=== PATIENT | female | born 1940 | race Caucasian/White ===

== ENCOUNTER 2017-02-09 11:10 | Observation (INO) | payer MEDICARE, OTHER ==
[2017-02-09] MEDS ORDERED: TYLENOL 325 MG PO PRN (11:51)
[2017-02-09] MEDS ORDERED: DUONEB 0.5-3 MG/3 ml Neb IH ONE (12:05)
[2017-02-09] MEDS: DUONEB 0.5-3 MG/3 ml Neb IH SCH ×4 (12:10→23:03)
[2017-02-09 12:27] LABS: Hemoglobin 11.6 gm/dl (12.0-16.0); Mean Cell Volume 93.3 fl (78-100); Mean Corpuscular Hemoglobin 30.9 pg (26-32); Mean Corpuscular Hgb Concent. 33.1 g/dl (32-36); Mean Platelet Volume 10.5 fl (6-9.5); Platelet Count 282 K/mm3 (150-450); Red Blood Count 3.75 M/mm3 (4.1-5.4); Red Cell Distribution Width 13.1 % (11.5-14.0); White Blood Count 9.6 K/mm3 (4.0-10.5)
[2017-02-09 12:46] LABS: ALBUMIN 3.1 g/dL (3.4-5.0); BILIRUBIN,TOTAL 0.4 mg/dL (0.2-1.0); Carbon Dioxide 28.3 mEq/L (21-32); Creatinine 1 1.86 mg/dl (0.55-1.30); Potassium 4.4 mEq/L (3.5-5.1); Total Protein 7.1 gm/dL (6.4-8.2)
[2017-02-09 12:56] LABS: BAND 2 % (0.0-2.0); Lymphocytes 9 % (24-44); Monocyte 2 % (0.0-12.0); Neutrophils 87 % (36.0-66.0); Platelet Estimate NORMAL (NORMAL); Total Cells Counted 100
[2017-02-09 12:57] LABS: Granulocyte Absolute (ANC) 8.6 (1.4-6.9)
--- NOTE | 2017-02-09 13:27 | XRAY ---
Indication: COPD exacerbation. Comparison: February 06, 2017. PA/lateral chest again hyperinflated. No focal infiltrate, consolidation, or large effusion. Heart and mediastinal structures within normal limits. Impression: Nonacute hyperinflated chest.
[2017-02-09] MEDS: Sodium Chloride 0.9% 1000 ML 1,000 ML IV SCH (13:36)
[2017-02-09] MEDS: Levofloxacin 500 MG Tablet PO SCH (13:37)
[2017-02-09] MEDS: solu-MEDROL 125 MG IV SCH ×2 (13:37→21:11)
[2017-02-09 13:38] LABS: INFLUENZA A NEGATIVE (NEGATIVE); INFLUENZA B NEGATIVE (NEGATIVE); RESPIRATORY SYNCTIAL VIRUS NEGATIVE (Negative)
[2017-02-09] MEDS ORDERED: MEDICATION INTERVENTION MC PRN (16:01)
[2017-02-09] MEDS ORDERED: Ventolin Hfa MDI IH SCH (17:00)
[2017-02-09] MEDS: Ditropan 5 MG PO SCH (21:11)
[2017-02-10] MEDS: Sodium Chloride 0.9% 1000 ML 1,000 ML IV SCH (02:17)
[2017-02-10] MEDS: DUONEB 0.5-3 MG/3 ml Neb IH SCH ×2 (03:55→07:28)
[2017-02-10] MEDS: solu-MEDROL 125 MG IV SCH ×2 (06:11→13:52)
[2017-02-10] MEDS: Levofloxacin 500 MG Tablet PO SCH (09:36)
[2017-02-10] MEDS: Ditropan 5 MG PO SCH (09:36)
[2017-02-10] MEDS ORDERED: NON-FORMULARY ITEM (Magnesium [Magnesium] 500 MG) PO SCH (10:00)
[2017-02-10] MEDS ORDERED: ECOTRIN 81 MG PO SCH (10:00)
[2017-02-10] MEDS ORDERED: Calcium 500MG W/Vit D Tablet PO SCH (10:00)
[2017-02-10] MEDS ORDERED: [UNRECOGNIZED DRUG - OTHER] PO SCH (10:00)
[2017-02-10] MEDS ORDERED: NON-FORMULARY ITEM (Omega-3 Fatty Acids/Fish Oil [Fish Oil 1,000 Mg Capsule] 1 EACH) PO SCH (10:00)
[2017-02-10] MEDS ORDERED: MAG-OX 400 PO SCH (10:00)
[2017-02-10] MEDS ORDERED: CALCIUM CARBONATE PO SCH (10:00)
[2017-02-10] MEDS ORDERED: SYNTHROID 125 MCG PO SCH (10:00)
[2017-02-10] MEDS ORDERED: THERAGRAN MULTIVITAMIN PO SCH (10:00)
[2017-02-10] MEDS ORDERED: FISH OIL 1,000 MG CAPSULE PO SCH (10:00)
[2017-02-10] MEDS ORDERED: Vitamin C 500 MG PO SCH (10:00)
[2017-02-10] MEDS ORDERED: ZYLOPRIM 300 MG PO SCH (10:00)
[2017-02-10] MEDS ORDERED: MULTIVIT WITH CALCIUM IRON MIN PO SCH (10:00)
[2017-02-10] MEDS ORDERED: VITAMIN D3 PO SCH (10:00)
[2017-02-10] MEDS ORDERED: Vitamin E 400 UNIT SOFTGEL PO SCH (10:00)
[2017-02-10] MEDS ORDERED: NON-FORMULARY ITEM (Niacin 500 Mg*** [Niaspan 500 Mg***] 500 MG) PO SCH (10:00)
[2017-02-10] MEDS ORDERED: [UNRECOGNIZED DRUG - OTHER] PO SCH (10:00)
[2017-02-10 12:31] LABS: Granulocyte Absolute (ANC) 11.79 (1.4-6.9); Hematocrit 31.6 % (35-47); Hemoglobin 10.5 gm/dl (12.0-16.0); Mean Cell Volume 94.3 fl (78-100); Mean Corpuscular Hemoglobin 31.3 pg (26-32); Mean Corpuscular Hgb Concent. 33.2 g/dl (32-36); Mean Platelet Volume 10.6 fl (6-9.5); Platelet Count 288 K/mm3 (150-450); Red Blood Count 3.35 M/mm3 (4.1-5.4); Red Cell Distribution Width 13.1 % (11.5-14.0); White Blood Count 13.3 K/mm3 (4.0-10.5)
[2017-02-10 13:06] LABS: ANION GAP 13.4 MEQ/L (5-15); Calcium 9.2 mg/dL (8.5-10.1); Carbon Dioxide 25.2 mEq/L (21-32); Creatinine 1 1.63 mg/dl (0.55-1.30); Potassium 3.9 mEq/L (3.5-5.1)
--- NOTE | 2017-02-10 13:39 | PCM.DCORD ---
- Discharge Discharge Date: 02/10/17 Disposition: Home, Self-Care Condition: Good Prescriptions: New Levofloxacin [Levofloxacin 500 MG Tablet] 500 mg PO DAILY tablet Continue Magnesium 500 mg PO DAILY Multivit with Calcium,Iron,Min [Multiple Vitamins For Women] 1 each PO DAILY Niacin 500 mg [Niaspan 500 mg] 500 mg PO DAILY Aspirin EC 81 mg [Ecotrin 81 mg] 81 mg PO DAILY Ascorbic Acid 500 mg [Vitamin C 500 MG] 500 mg PO DAILY Vitamin E 400 Units [Vitamin E 400 UNIT SOFTGEL] 400 unit PO DAILY [place]-3 Fatty Acids/Fish Oil [Fish Oil 1,000 mg Capsule] 1 each PO DAILY Oxybutynin Chloride 5 mg PO BID Levothyroxine Sodium 100 Mcg [Synthroid 100 Mcg] 125 mcg PO DAILY Allopurinol 300 mg [Zyloprim 300 mg] 300 mg PO DAILY Albuterol Sulfate [Proventil Hfa] 6.7 gm IH QID Calcium Carbonate/Vitamin D3 [Caltrate 600 + D Soft Chew Tab] 1 each PO DAILY Carboxymethylcellulose Sodium [Thera Tears] 1 ml OP Q2H Hypromellose/Pf [Retaine Hpmc 0.3% Eye Drops] 1 ml OP Q2H Vit C/E/Zn/Coppr/Lutein/Zeaxan [Preservision Areds 2 Softgel] 1 each PO BID Discontinued Potassium Chloride 20 Meq [Klor-Con 20 MEQ] 20 meq PO BID Furosemide 40 mg [Lasix 40 MG] 40 mg PO BID Ramipril 5 mg [Altace 5 MG] 5 mg PO BID Metoprolol Tartrate 50 mg PO BID Additional Instructions: Hold your ramipril, metoprolol, lasix and potassium until you are seen in the clinic early this coming week. I would like for you to be seen before . Finish your prednisone as ordered on 02/06/17. Follow up with: CALEB ROWLEY [ACTIVE STAFF] - 1 Week
[2017-02-10 14:41] VITALS: BP 123/58; PULSE 108; O2SAT 92
[2017-02-10 15:25] LABS: BAND 1 % (0.0-2.0); Lymphocytes 24 % (24-44); Monocyte 3 % (0.0-12.0); Neutrophils 72 % (36.0-66.0); Total Cells Counted 100
[2017-02-10 15:26] LABS: ANISOCYTOSIS 1+; Poikilocytosis 1+
[2017-02-10 15:27] LABS: Platelet Estimate NORMAL (NORMAL); Rouleau 1+
--- NOTE | 2017-02-14 09:45 | SSS ---
ADMISSION DIAGNOSIS: Chronic obstructive pulmonary disease exacerbation. DISCHARGE DIAGNOSES: 1) CHRONIC OBSTRUCTIVE PULMONARY DISEASE EXACERBATION. 2) MILD DEHYDRATION NOW RESOLVED. 3) HYPERTENSION. 4) CHRONIC KIDNEY DISEASE. HISTORY OF PRESENT ILLNESS: This is a 76 year old lady who I first saw in my clinic on 02/06/2017. At that time she complained over the past week of having cough, chills, losing her voice and not having much of an appetite. She was not sure if she had a fever at home. She smokes at home and continues to do this along with history of chronic obstructive pulmonary disease. She was using a Proventil inhaler at home every two to three hours. She also had some nausea but no vomiting. Her cough was productive of phlegm. She had scattered wheezes throughout that improved with DuoNeb in the clinic. She was able to speak in full sentences and was coughing frequently. I offered her hospital admission but she declined as she had to take care of animals at home so she was given levofloxacin 500 mg p.o. daily to take for seven days, prednisone 20 mg tablet 3 tablets p.o. daily for three days and 2 tablets p.o. daily for three days and then 1 tablet p.o. daily for three days. She was also given Kenalog 40 mg IM. She was agreeable to return to the clinic on 02/09/2017. When she did she reported that she continued to feel sick at home and was not really feeling much better. She continued to have a cough that was productive of some phlegm. She had been taking Levaquin as well as prednisone and using a nebulizer. She reported increased fatigue if she had to be on her feet for more than ten minutes. She was agreeable for admission to the hospital for evaluation and continued treatment. Her oxygen saturation had been around 91% in the clinic. REVIEW OF SYSTEMS: She had fatigue, cough, shortness of breath, hoarse voice. No abdominal pain. No chest pain. No lower extremity edema. No rashes. PAST MEDICAL HISTORY: Chronic obstructive pulmonary disease, mitral valve prolapse, gout, hypertension, hypothyroidism, chronic kidney disease that she reports she sees a business applications analyst for. PAST SURGICAL HISTORY: Tubal ligation. Growth removed from her thumb. MEDICATIONS: Please see her home medication list which I reviewed. ALLERGIES: NKDA. SOCIAL HISTORY: She lives alone. She smokes one pack per day. FAMILY HISTORY: Noncontributory. PHYSICAL EXAMINATION: VITAL SIGNS: Temperature current 97.6F, temperature max 98.1F, heart rate 81 to 99, respiratory rate 18 to 22, blood pressure 109 to 133 over 51 to 63. Oxygen saturation 91 to 95% on room air. GENERAL: The patient was sitting up in bed a pleasant talkative lady in no acute distress. CVS: She has a regular rate and rhythm. No murmurs, gallops or rubs. CHEST: Clear to auscultation bilaterally. No crackles or wheezes. She had equal breath sounds. ABDOMEN: Soft, nontender, nondistended with normal bowel sounds. EXTREMITIES: No clubbing, cyanosis or edema. LABORATORY DATA AND TESTS: On admission her hemoglobin was 11.6, repeat hemoglobin 10.5. Sodium 134, repeat 137. Chloride 95, repeat 102. Creatinine 1.86, repeat 1.63. Influenza A/B and respiratory syncytial virus were all negative. Chest x-ray without any infiltrates. Please see the radiologist report for the full dictation. ASSESSMENT AND PLAN: 1) CHRONIC OBSTRUCTIVE PULMONARY DISEASE EXACERBATION: While she was here in the hospital she was given IV steroids, breathing treatment. She did not require any oxygen. She was continued on Levaquin. The patient reported she is feeling much better and would like to go home today. She will finish the Levaquin and prednisone that she already had at home. She also has albuterol inhaler and she will follow up closely with me in the clinic as I am aware of her present illness. 2) MILD DEHYDRATION: She was given fluids overnight and was taking liquids well by mouth, will hold her Lasix and potassium chloride at home until she can be seen. 3) HYPERTENSION: Her antihypertensive was held and will continue to hold those at home until she is seen in the clinic next week. 4) CHRONIC KIDNEY DISEASE: The patient is stage III. The patient was told not to take any NSAID's. She reports this is what her business applications analyst has also told her and she is agreeable to this. DISPOSITION: The patient was discharged home in fair condition. DISCHARGE MEDICATIONS: She is resuming all of her home medications except for Ramipril, metoprolol, Furosemide and potassium chloride which will most likely be restarted on her follow up visit.
== END 2017-02-10 15:00 | disposition home or self-care (01) ==
LOC: MED SURG 11:19
PROVIDERS: ADMIT Internal Medicine; ATTEND Internal Medicine
DX: J44.1 Chronic obstructive pulmonary disease with (acute) exacerbation (principal); E86.0 Dehydration; I10 Essential (primary) hypertension; N18.3 Chronic kidney disease, stage 3 (moderate); Z79.899 Other long term (current) drug therapy
CPT/HCPCS: 36415; 71046; 80048; 80053; 85025; 87631; 93005; 94640; 94760; G0378; J2930; A9270-GY

== ENCOUNTER 2019-06-10 15:07 | Emergency (ER) | payer MEDICARE, OTHER ==
[2019-06-10 15:16] VITALS: BP 189/115; PULSE 71; O2SAT 94
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
== END 2019-06-10 16:49 | disposition home or self-care (01) ==
LOC: ED 15:07
DX: S16.1XXA Strain of muscle, fascia and tendon at neck level, initial encounter (principal); V89.2XXA Person injured in unspecified motor-vehicle accident, traffic, initial encounter
CPT/HCPCS: 70450; 71046; 72125; 99284